=== PATIENT | male | born 1950 | race Native Hawaiian/Other Pacific Islander ===

== ENCOUNTER 2018-01-23 12:55 | Outpatient (CLI) | payer OTHER | END 2018-01-23 23:05 | disposition home or self-care (01) | LOC: RAD 12:55 | DX: M54.32 Sciatica, left side (principal) ==

== ENCOUNTER 2018-12-15 13:19 | Outpatient (CLI) | payer OTHER ==
[2018-12-15 13:54] LABS: PLATELET COUNT 240 K/uL (142-355)
[2018-12-15 14:10] LABS: POTASSIUM 4.5 mmol/L (3.6-5.2)
== END 2018-12-15 21:43 | disposition home or self-care (01) ==
LOC: LAB 13:19
PROVIDERS: Internal Medicine
DX: I10 Essential (primary) hypertension (principal); E78.00 Pure hypercholesterolemia, unspecified; Z12.5 Encounter for screening for malignant neoplasm of prostate; N40.0 Benign prostatic hyperplasia without lower urinary tract symptoms
CPT/HCPCS: 36415; 80053; 80061; 84153; 84443; 85027

== ENCOUNTER 2020-03-28 13:30 | Outpatient (CLI) | payer OTHER | END 2020-03-28 23:32 | disposition home or self-care (01) | LOC: RESP 13:30 | DX: R06.02 Shortness of breath (principal) ==

== ENCOUNTER 2020-09-24 14:47 | Outpatient (CLI) | payer OTHER ==
[2020-09-24 15:01] LABS: PLATELET COUNT 231 K/uL (142-355)
[2020-09-24 15:23] LABS: POTASSIUM 4.2 mmol/L (3.6-5.2)
== END 2020-09-24 22:22 | disposition home or self-care (01) ==
LOC: LAB 14:47
PROVIDERS: ATTEND Internal Medicine
DX: Z00.00 Encounter for general adult medical examination without abnormal findings (principal); I10 Essential (primary) hypertension; E78.00 Pure hypercholesterolemia, unspecified; Z13.820 Encounter for screening for osteoporosis; E55.9 Vitamin D deficiency, unspecified; N40.0 Benign prostatic hyperplasia without lower urinary tract symptoms
CPT/HCPCS: 80053; 80061; 82306; 84153; 84443; 85027

== ENCOUNTER 2021-08-20 16:31 | Outpatient (CLI) | payer OTHER ==
[2021-08-20 17:11] LABS: PLATELET COUNT 254 K/uL (142-355)
[2021-08-20 17:27] LABS: POTASSIUM 3.8 mmol/L (3.6-5.2)
== END 2021-08-20 19:20 | disposition home or self-care (01) ==
LOC: LABW 16:31
PROVIDERS: ATTEND Nurse Practitioner Family
DX: I10 Essential (primary) hypertension (principal); M25.50 Pain in unspecified joint; R06.02 Shortness of breath; Z79.899 Other long term (current) drug therapy; R53.83 Other fatigue; R53.81 Other malaise; R39.12 Poor urinary stream
CPT/HCPCS: 36415; 80053; 80061; 82306; 82607; 83036; 84153; 84402; 84403; 84439; 84443; 85027